=== PATIENT | female | born 1965 | race Caucasian/White ===

== ENCOUNTER 2024-08-07 18:04 | Emergency (ER) | payer MEDICAID ==
[~2024-08-07] VITALS: Ht 170.2 cm; Wt 120.0 kg
[2024-08-07 18:11] VITALS: BP 154/81; PULSE 78; RESP 16; TEMP 37.1; O2SAT 100
[2024-08-07] MEDS ORDERED: OXYCODONE HCL/ACETAMINOPHEN 5/325MG TABLET PO ONE (19:00)
[2024-08-07] MEDS: OXYCODONE HCL/ACETAMINOPHEN 5/325MG TABLET PO NR (20:37)
[2024-08-07] MEDS ORDERED: NAPR-420 MT (20:57)
== END 2024-08-07 21:26 | disposition home or self-care (01) ==
LOC: ER 18:04
DX: M25.562 Pain in left knee (principal); M54.9 Dorsalgia, unspecified; M54.2 Cervicalgia; Z91.014 Allergy to mammalian meats; Z98.890 Other specified postprocedural states; W01.0XXA Fall on same level from slipping, tripping and stumbling without subsequent striking against object, initial encounter; Y93.89 Activity, other specified; Y92.89 Other specified places as the place of occurrence of the external cause; Y99.8 Other external cause status
CPT/HCPCS: 72128; 73552; 73562; 73590; 99284